=== PATIENT | male | born 1935 | race Caucasian/White ===

== ENCOUNTER 2017-12-17 15:19 | Emergency (ER) | payer MEDICARE ==
[~2017-12-17] VITALS: Ht 172.7 cm; Wt 85.0 kg
[~2017-12-17 15:19] MED LIST: ASPI-496 PO; ATOR10TA PO; ATOR10TA9 PO; CHOL200074 PO; GABA-826 PO; HYDR-3241 PO; LISI1TAB3 PO; LISI1TAB5 PO; METO25TA91 PO; MULT-224 PO; PREG75CA PO; TAMS0.4C2 PO
[2017-12-17 16:16] LABS: BASOPHILS # (AUTO) 0.02 x10^3/uL (0-0.1); BASOPHILS % (AUTO) 0 % (0-1); EOSINOPHILS # (AUTO) 0.04 x10^3/uL (0-0.4); EOSINOPHILS % (AUTO) 1 % (1-7); LYMPHOCYTES # (AUTO) 1.29 x10^3/uL (1-3.4); LYMPHOCYTES % (AUTO) 21 % (22-44); MD NO; MEAN CORPUSCULAR HEMOGLOBIN 34.5 pg (27.5-34.5); MEAN CORPUSCULAR HGB CONC 33.4 g/dL (33.2-36.2); MEAN CORPUSCULAR VOLUME 103.5 fL (81-97); MEAN PLATELET VOLUME 8.1 fL (7.4-10.4); MONOCYTES # (AUTO) 0.97 x10^3/uL (0.2-0.8); MONOCYTES % (AUTO) 16 % (2-9); NEUTROPHILS # (AUTO) 3.97 x10^3/uL (1.8-6.8); NEUTROPHILS % (AUTO) 63 % (42-75); PLATELET COUNT 152 x10^3/uL (130-400); RED BLOOD COUNT 3.38 x10^6/uL (4.38-5.82); RED CELL DISTRIBUTION WIDTH 17.1 % (9.4-14.8)
[2017-12-17 16:26] LABS: ALANINE AMINOTRANSFERASE 44 U/L (12-78); ALBUMIN 3.3 g/dL (3.4-5.0); ANION GAP 5 mmol/L (5-15); CHLORIDE 105 mmol/L (98-107); CREATININE 1.04 mg/dL (0.7-1.3)
[2017-12-17 16:28] LABS: ALKALINE PHOSPHATASE 85 U/L (45-117); BILIRUBIN,TOTAL 0.7 mg/dL (0.2-1.0); TOTAL PROTEIN 7.4 g/dL (6.4-8.2)
[2017-12-17] MEDS ORDERED: METHYLNALTREXONE 12 MG/0.6 ML SQ ONE ×2 (17:00→17:06)
[2017-12-17 18:05] LABS: MICROSCOPIC AUTO
[2017-12-17 18:08] LABS: CULTURE INDICATED? NO
[2017-12-17 19:32] VITALS: BP 142/62
== END 2017-12-17 19:34 | disposition home or self-care (01) ==
LOC: ED 18:22
DX: K59.00 Constipation, unspecified (principal); I11.0 Hypertensive heart disease with heart failure; I50.811 Acute right heart failure; F11.988 Opioid use, unspecified with other opioid-induced disorder; M19.90 Unspecified osteoarthritis, unspecified site; Z90.49 Acquired absence of other specified parts of digestive tract; Z95.0 Presence of cardiac pacemaker
CPT/HCPCS: 36415; 74021; 80053; 81001; 83690; 83880; 85025; 96372; 99285

== ENCOUNTER 2019-04-14 18:02 | Inpatient (IN) | payer MEDICARE ==
[~2019-04-14] VITALS: Ht 172.7 cm; Wt 88.7 kg
[~2019-04-14 18:02] MED LIST changes: +LISI1TAB19 PO; +LISI1TAB23 PO; -LISI1TAB3 PO; -LISI1TAB5 PO; -MULT-224 PO; +MULT-642 PO
[2019-04-14] MEDS: PLEASE ENTER HEIGHT AND WEIGHT MC SCH ×2 (18:50→19:19)
--- NOTE | 2019-04-14 18:53 | NUR ---
TASK RN: FLUIDS RUNNING, VSS AT THIS TIME. LAB AT BEDSIDE FOR COLLECTION. PRIMARY RN UPDATED
[2019-04-14] MEDS ORDERED: PIPERACILLIN/TAZO/PMX 3.375GM 50 ML IVPB ONE (19:00)
[2019-04-14] MEDS ORDERED: SODIUM CHLORIDE 0.9% 1,000ML IVBOLUS ONE (19:00)
--- NOTE | 2019-04-14 19:04 | NUR ---
THIS IS N 83 YO MALE PT ROMÁN WELDON FROM HOME AFTER PT HAD AN ACUTE CHANGE IN MENTAL STATUS TODAY. PT WAS RECENTLY ADMITTED AT [facility] FOR [place] LEVELS OF APPROX 56. PT AO X SELF AND SOMEWHAT THE SITUATION. PT GIVEN APPROX 400 CC PASTE THINNER. FS 146. PT IS WARM TO TOUCH, SKIN PINK AND DRY. PT HAS SLIGHTLY SHALLOW, RAPID RESP OF 24. PT COOPERATIVE AT THIS TIME. URINE SAMPLE OBTAINED AND SENT TO LAB. CAMILO PALACIOS WAS AT BEDSIDE FOR EVAL. PT ON HOME HEALTH CLINICIAN, PACED. WILL CONT TO MONITOR PT.
[2019-04-14 19:06] LABS: MICROSCOPIC NOT IND
[2019-04-14 19:08] LABS: CULTURE INDICATED? NO
[2019-04-14] MEDS ORDERED: PIPERACILLIN/TAZO/PMX 3.375GM 50 ML ONE (19:21)
[2019-04-14 19:22] LABS: MEAN CORPUSCULAR HEMOGLOBIN 37.4 pg (27.5-34.5); MEAN CORPUSCULAR HGB CONC 33.6 g/dL (33.2-36.2); MEAN CORPUSCULAR VOLUME 111.2 fL (81-97); PLATELET COUNT 243 x10^3/uL (130-400); RED BLOOD COUNT 2.67 x10^6/uL (4.38-5.82)
[2019-04-14 19:28] LABS: INTERNATIONAL NORMALIZED RATIO 0.94 (0.93-1.1)
[2019-04-14 19:32] LABS: ALANINE AMINOTRANSFERASE 10 U/L (12-78); ALBUMIN 3.2 g/dL (3.4-5.0); ANION GAP 6 mmol/L (5-15); CALCIUM 8.7 mg/dL (8.5-10.1); CHLORIDE 102 mmol/L (98-107); CREATININE 1.51 mg/dL (0.7-1.3)
[2019-04-14 19:37] LABS: ALKALINE PHOSPHATASE 63 U/L (45-117); BILIRUBIN,TOTAL 0.7 mg/dL (0.2-1.0); FREE T4 (FREE THYROXINE) 1.12 ng/dL (0.76-1.46); TOTAL PROTEIN 7.5 g/dL (6.4-8.2); TROPONIN I 0.037 ng/mL (0.000-0.045)
[2019-04-14 19:39] LABS: BASOPHILS # (AUTO) 0.01 x10^3/uL (0-0.1); BASOPHILS % (AUTO) 0 % (0-1); EOSINOPHILS # (AUTO) 0.16 x10^3/uL (0-0.4); EOSINOPHILS % (AUTO) 1 % (1-7); LYMPHOCYTES # (AUTO) 0.92 x10^3/uL (1-3.4); LYMPHOCYTES % (AUTO) 4 % (22-44); MD SCAN; MONOCYTES # (AUTO) 1.14 x10^3/uL (0.2-0.8); MONOCYTES % (AUTO) 5 % (2-9); NEUTROPHILS # (AUTO) 20.54 x10^3/uL (1.8-6.8); NEUTROPHILS % (AUTO) 90 % (42-75)
--- NOTE | 2019-04-14 19:43 | NUR ---
PT REPOSITIONED FOR COMFORT. PT'S AND SON ARE AT BEDSIDE. PT CONT TO BE AO X 2. PT FOLLOW'S COMMANDS APPROPRIATELY. PT WARM TO TOUCH, PINK AND DRY. RESP SLIGHTLY SHALLOW, SLOWER RESP AT RR 21 AND UNLABORED. PT ON CONT BP, CARDIAC AND O2 MONITORS. PT AND PT'S FAMILY AWARE WE ARE WAITING FOR LAB/IMAGING RESULTS. CALL LIGHT WITHIN REACH. WILL CONT TO MONITOR PT.
[2019-04-14] MEDS ORDERED: SPIR25TA5 PO (20:15)
[2019-04-14] MEDS ORDERED: FURO-92 PO (20:15)
[2019-04-14] MEDS ORDERED: CYAN100028 PO (20:15)
[2019-04-14] MEDS ORDERED: PREG75CA PO (20:15)
[2019-04-14] MEDS ORDERED: LACT20SO13 PO ×3 (20:15→20:17)
[2019-04-14] MEDS ORDERED: BENZ-17 PO (20:15)
[2019-04-14] MEDS ORDERED: ACET-1600 PO ×2 (20:15)
[2019-04-14] MEDS ORDERED: FURO-93 PO ×2 (20:15→21:25)
[2019-04-14] MEDS ORDERED: VANCOMYCIN 1,500 MG in SODIUM CHLORIDE 0.9% 250 ML IV ONE (20:30)
[2019-04-14] MEDS ORDERED: VANCOMYCIN PER PHARMACY MC PRN ×2 (20:30→22:30)
--- NOTE | 2019-04-14 20:33 | NUR ---
CAMIL[facility] PALACIOS AT BEDSIDE FOR RECHECK/EXPLANATION OF RESULTS TO PT AND PT'S WHO IS AT BEDSIDE. PT CONT TO BE AO X 2. PT WARM TO TOUCH, SKIN WARM AND DRY. RESP EVEN AND UNLABORED. PT ON CONT BP, CARDIAC AND O2 MONITORS. PER CAMILO PALACIOS PT IS NOT TO RECEIVE FLUIDS AT THIS TIME. CALL LIGHT WITHIN REACH. WILL CONT TO MONITOR PT.
--- NOTE | 2019-04-14 21:03 | NUR ---
ADMITTING [facility] AT BEDSIDE FOR EVAL. AT BEDSIDE. PT CONT TO BE AO X 2. SKIN PWD. RESP EVEN AND UNLABORED. PT ON CONT BP, CARDIAC AND O2 MONITORS. RESP EVEN AND UNLABORED. CALL LIGHT WITHIN REACH. WILL CONT TO MONITOR PT.
[2019-04-14] MEDS ORDERED: ASPI-515 PO (21:25)
[2019-04-14] MEDS ORDERED: GABAPENTIN PO (21:25)
--- NOTE | 2019-04-14 22:02 | NUR ---
PT RESTING ON GURNEY. NAD NOTED. SKIN PWD. RESP EVEN AND UNLABORED. OCCAISIONAL LOOSE COUGH NOTED BY RN. PT AO X 2. PT ON CONT METAL SPRAYER WITH PACED RHYTHM. CALL LIGHT WITHIN REACH.
--- NOTE | 2019-04-14 22:16 | NUR ---
REPORT TO CHARLOTTE ADAMS ON TELE.
--- NOTE | 2019-04-14 22:20 | NUR ---
DISCUSSED OBTAINING A TYLENOL ORDER FOR PT WITH [facility]. AWAITING ORDERS.
[2019-04-14] MEDS ORDERED: PHARMACY MAY ADJ FOR RENAL FX MC PRN (22:30)
[2019-04-14] MEDS ORDERED: BISACODYL 10 MG SUPP PR PRN (22:30)
[2019-04-14] MEDS ORDERED: hydrALAzine 20 MG/ML, 1ML IVPush PRN (22:30)
[2019-04-14] MEDS ORDERED: LACTATED RINGERS 1,000 ML IV SCH (22:30)
[2019-04-14 23:10] VITALS: BP 107/64
[2019-04-14] MEDS ORDERED: PHARMACOKINETIC MONITORING MC PRN (23:30)
[2019-04-15] MEDS: HEPARIN 5,000 UNITS/ML, 1ML SQ SCH ×3 (00:39→17:15)
[2019-04-15 01:37] VITALS: BP 104/61
[2019-04-15] MEDS: PIPERACILLIN/TAZO/PMX 3.375GM 50 ML IV SCH ×4 (05:03→23:59)
[2019-04-15 06:02] LABS: MEAN CORPUSCULAR HEMOGLOBIN 37.5 pg (27.5-34.5); MEAN CORPUSCULAR HGB CONC 33.6 g/dL (33.2-36.2); MEAN CORPUSCULAR VOLUME 111.7 fL (81-97); MEAN PLATELET VOLUME 7.1 fL (7.4-10.4); PLATELET COUNT 211 x10^3/uL (130-400); RED BLOOD COUNT 2.57 x10^6/uL (4.38-5.82); RED CELL DISTRIBUTION WIDTH 16.4 % (9.4-14.8)
[2019-04-15 06:12] LABS: ANION GAP 5 mmol/L (5-15); CALCIUM 8.6 mg/dL (8.5-10.1); CHLORIDE 105 mmol/L (98-107); CREATININE 1.33 mg/dL (0.7-1.3)
[2019-04-15 06:34] LABS: BASOPHILS # (AUTO) 0.01 x10^3/uL (0-0.1); BASOPHILS % (AUTO) 0 % (0-1); EOSINOPHILS # (AUTO) 0.08 x10^3/uL (0-0.4); EOSINOPHILS % (AUTO) 0 % (1-7); LYMPHOCYTES # (AUTO) 2.21 x10^3/uL (1-3.4); LYMPHOCYTES % (AUTO) 12 % (22-44); MD SCAN; MONOCYTES # (AUTO) 1.04 x10^3/uL (0.2-0.8); MONOCYTES % (AUTO) 6 % (2-9); NEUTROPHILS # (AUTO) 15.79 x10^3/uL (1.8-6.8); NEUTROPHILS % (AUTO) 83 % (42-75)
[2019-04-15 07:24] VITALS: BP 102/64
[2019-04-15] MEDS ORDERED: ERGO500017 PO (11:33)
[2019-04-15 12:55] VITALS: BP 120/74
[2019-04-15] MEDS: GUAIFENESIN ER 600 MG TABLET PO SCH ×2 (13:31→21:17)
[2019-04-15] MEDS ORDERED: VANCOMYCIN 1,700 MG in SODIUM CHLORIDE 0.9% 250 ML IV SCH (17:00)
[2019-04-15] MEDS: LACTULOSE 20 GM/30 ML UDC PO SCH ×2 (17:15→21:16)
[2019-04-15] MEDS: ONDANSETRON 2MG/ML, 2ML IVPush PRN (18:04)
[2019-04-15] MEDS: ALUMINUM/MAG/SIMETHICONE 30 ML UDC PO PRN (19:09)
[2019-04-15 20:01] VITALS: BP 115/72
[2019-04-15] MEDS ORDERED: ASPIRIN 81 MG TABLET EC PO SCH (21:00)
[2019-04-15] MEDS: ASPIRIN 81 MG TABLET CHEW PO SCH (21:16)
[2019-04-15] MEDS: PREGABALIN 75 MG CAPSULE PO SCH (21:16)
[2019-04-15] MEDS: ATORVASTATIN 10 MG TABLET PO SCH (21:16)
[2019-04-15] MEDS: LACTATED RINGERS 1,000 ML IV SCH (23:59)
[2019-04-16 00:59] VITALS: BP 128/80
[2019-04-16] MEDS: HEPARIN 5,000 UNITS/ML, 1ML SQ SCH ×4 (01:07→23:58)
[2019-04-16] MEDS: ALUMINUM/MAG/SIMETHICONE 30 ML UDC PO PRN ×4 (02:04→21:25)
[2019-04-16 04:17] VITALS: BP 118/78
[2019-04-16] MEDS: PIPERACILLIN/TAZO/PMX 3.375GM 50 ML IV SCH ×4 (05:32→23:48)
[2019-04-16 07:19] LABS: CALCIUM 8.6 mg/dL (8.5-10.1)
[2019-04-16 07:21] LABS: CREATININE 1.02 mg/dL (0.7-1.3); MEAN CORPUSCULAR HEMOGLOBIN 37.2 pg (27.5-34.5); MEAN CORPUSCULAR HGB CONC 32.7 g/dL (33.2-36.2); MEAN CORPUSCULAR VOLUME 113.9 fL (81-97); MEAN PLATELET VOLUME 7.3 fL (7.4-10.4); PLATELET COUNT 196 x10^3/uL (130-400); RED CELL DISTRIBUTION WIDTH 16.1 % (9.4-14.8)
[2019-04-16 07:50] LABS: BASOPHILS # (AUTO) 0.05 x10^3/uL (0-0.1); BASOPHILS % (AUTO) 1 % (0-1); EOSINOPHILS # (AUTO) 0.29 x10^3/uL (0-0.4); EOSINOPHILS % (AUTO) 4 % (1-7); LYMPHOCYTES # (AUTO) 1.36 x10^3/uL (1-3.4); LYMPHOCYTES % (AUTO) 18 % (22-44); MD SCAN; MONOCYTES # (AUTO) 0.79 x10^3/uL (0.2-0.8); MONOCYTES % (AUTO) 11 % (2-9); NEUTROPHILS # (AUTO) 4.92 x10^3/uL (1.8-6.8); NEUTROPHILS % (AUTO) 66 % (42-75)
[2019-04-16 07:54] LABS: ANION GAP 4 mmol/L (5-15); CHLORIDE 108 mmol/L (98-107)
[2019-04-16 08:05] VITALS: BP 112/65
[2019-04-16] MEDS: GUAIFENESIN 200 MG TABLET PO SCH ×4 (09:09→20:17)
[2019-04-16] MEDS: PREGABALIN 75 MG CAPSULE PO SCH ×3 (09:09→20:16)
[2019-04-16] MEDS: LACTULOSE 20 GM/30 ML UDC PO SCH ×3 (09:10→20:16)
[2019-04-16] MEDS: METOPROLOL SUCCINATE 25 MG TAB.ER.24H PO SCH (09:10)
[2019-04-16] MEDS: ONDANSETRON 2MG/ML, 2ML IVPush PRN ×3 (09:21→23:58)
[2019-04-16 12:29] VITALS: BP 112/73
[2019-04-16] MEDS: ATORVASTATIN 10 MG TABLET PO SCH (20:16)
[2019-04-16] MEDS: ASPIRIN 81 MG TABLET CHEW PO SCH (20:17)
[2019-04-16] MEDS: LIDODERM 5% PATCH TD PRN (20:27)
[2019-04-16 21:45] VITALS: BP 112/72
[2019-04-17] MEDS: ALUMINUM/MAG/SIMETHICONE 30 ML UDC PO PRN ×4 (01:42→21:00)
[2019-04-17 01:52] VITALS: BP 120/80
[2019-04-17 05:15] LABS: MEAN CORPUSCULAR HEMOGLOBIN 37.6 pg (27.5-34.5); MEAN CORPUSCULAR HGB CONC 33.3 g/dL (33.2-36.2); MEAN CORPUSCULAR VOLUME 112.8 fL (81-97); MEAN PLATELET VOLUME 7.6 fL (7.4-10.4); PLATELET COUNT 211 x10^3/uL (130-400); RED BLOOD COUNT 2.49 x10^6/uL (4.38-5.82); RED CELL DISTRIBUTION WIDTH 15.4 % (9.4-14.8)
[2019-04-17 05:19] LABS: ALBUMIN 2.6 g/dL (3.4-5.0); ANION GAP 2 mmol/L (5-15); CALCIUM 8.7 mg/dL (8.5-10.1); CHLORIDE 107 mmol/L (98-107)
[2019-04-17 05:22] LABS: ALANINE AMINOTRANSFERASE 14 U/L (12-78); ALKALINE PHOSPHATASE 45 U/L (45-117); BILIRUBIN,TOTAL 0.8 mg/dL (0.2-1.0); CREATININE 0.96 mg/dL (0.7-1.3); TOTAL PROTEIN 6.8 g/dL (6.4-8.2)
[2019-04-17 06:01] LABS: BASOPHILS # (AUTO) 0.07 x10^3/uL (0-0.1); BASOPHILS % (AUTO) 1 % (0-1); EOSINOPHILS # (AUTO) 0.34 x10^3/uL (0-0.4); EOSINOPHILS % (AUTO) 5 % (1-7); LYMPHOCYTES # (AUTO) 1.98 x10^3/uL (1-3.4); LYMPHOCYTES % (AUTO) 30 % (22-44); MD SCAN; MONOCYTES % (AUTO) 12 % (2-9); NEUTROPHILS # (AUTO) 3.41 x10^3/uL (1.8-6.8); NEUTROPHILS % (AUTO) 52 % (42-75)
[2019-04-17] MEDS: GUAIFENESIN 200 MG TABLET PO SCH ×4 (06:11→21:01)
[2019-04-17] MEDS: PIPERACILLIN/TAZO/PMX 3.375GM 50 ML IV SCH ×4 (06:11→23:20)
[2019-04-17] MEDS: ONDANSETRON 2MG/ML, 2ML IVPush PRN ×2 (06:12→11:30)
[2019-04-17 07:10] VITALS: BP 107/71
[2019-04-17] MEDS: HEPARIN 5,000 UNITS/ML, 1ML SQ SCH ×2 (08:32→17:06)
[2019-04-17] MEDS: LACTULOSE 20 GM/30 ML UDC PO SCH ×3 (08:32→21:00)
[2019-04-17] MEDS: PREGABALIN 75 MG CAPSULE PO SCH ×3 (08:32→21:00)
[2019-04-17] MEDS: LACTATED RINGERS 1,000 ML IV SCH (08:32)
[2019-04-17] MEDS: METOPROLOL SUCCINATE 25 MG TAB.ER.24H PO SCH (08:34)
[2019-04-17] MEDS: MEXILETINE 150 MG CAPSULE PO SCH ×2 (13:21→20:59)
[2019-04-17 13:37] VITALS: BP 106/68
[2019-04-17 18:03] VITALS: BP 105/60
[2019-04-17 19:33] VITALS: BP 125/73
[2019-04-17] MEDS: ASPIRIN 81 MG TABLET CHEW PO SCH (21:00)
[2019-04-17] MEDS: ATORVASTATIN 10 MG TABLET PO SCH (21:01)
[2019-04-18] MEDS: HEPARIN 5,000 UNITS/ML, 1ML SQ SCH ×3 (00:30→17:06)
[2019-04-18 03:20] VITALS: BP 112/68
[2019-04-18 04:54] LABS: MEAN CORPUSCULAR HEMOGLOBIN 37.2 pg (27.5-34.5); MEAN CORPUSCULAR HGB CONC 33.2 g/dL (33.2-36.2); MEAN CORPUSCULAR VOLUME 112.2 fL (81-97); MEAN PLATELET VOLUME 7.3 fL (7.4-10.4); PLATELET COUNT 201 x10^3/uL (130-400); RED BLOOD COUNT 2.46 x10^6/uL (4.38-5.82); RED CELL DISTRIBUTION WIDTH 15.8 % (9.4-14.8)
[2019-04-18 05:02] LABS: ALBUMIN 2.5 g/dL (3.4-5.0); ANION GAP 5 mmol/L (5-15); CALCIUM 8.6 mg/dL (8.5-10.1); CHLORIDE 108 mmol/L (98-107); CREATININE 1.01 mg/dL (0.7-1.3)
[2019-04-18 05:04] LABS: ALKALINE PHOSPHATASE 45 U/L (45-117); BILIRUBIN,TOTAL 0.5 mg/dL (0.2-1.0); TOTAL PROTEIN 6.4 g/dL (6.4-8.2)
[2019-04-18 05:05] LABS: ALANINE AMINOTRANSFERASE < 6 U/L (12-78)
[2019-04-18 05:51] LABS: BASOPHILS # (AUTO) 0.06 x10^3/uL (0-0.1); BASOPHILS % (AUTO) 1 % (0-1); EOSINOPHILS % (AUTO) 4 % (1-7); LYMPHOCYTES # (AUTO) 1.58 x10^3/uL (1-3.4); LYMPHOCYTES % (AUTO) 34 % (22-44); MD SCAN; MONOCYTES # (AUTO) 0.68 x10^3/uL (0.2-0.8); MONOCYTES % (AUTO) 15 % (2-9); NEUTROPHILS # (AUTO) 2.15 x10^3/uL (1.8-6.8); NEUTROPHILS % (AUTO) 46 % (42-75)
[2019-04-18] MEDS: PIPERACILLIN/TAZO/PMX 3.375GM 50 ML IV SCH ×2 (05:52→12:49)
[2019-04-18] MEDS: GUAIFENESIN 200 MG TABLET PO SCH ×4 (05:52→21:05)
[2019-04-18] MEDS: MEXILETINE 150 MG CAPSULE PO SCH ×2 (05:52→14:20)
[2019-04-18 06:43] VITALS: BP 101/63
[2019-04-18 09:15] VITALS: BP 106/68
[2019-04-18] MEDS: METOPROLOL SUCCINATE 25 MG TAB.ER.24H PO SCH (09:19)
[2019-04-18] MEDS: LACTULOSE 20 GM/30 ML UDC PO SCH ×2 (09:19→21:05)
[2019-04-18] MEDS: PREGABALIN 75 MG CAPSULE PO SCH ×3 (09:19→21:05)
[2019-04-18 12:20] VITALS: BP 101/66
[2019-04-18] MEDS ORDERED: MAG-124 PO (13:19)
[2019-04-18] MEDS ORDERED: ONDA4TAB7 PO (13:19)
[2019-04-18] MEDS: ONDANSETRON 2MG/ML, 2ML IVPush PRN (17:16)
[2019-04-18] MEDS: CEFTRIAXONE PMX 1GM/50ML 50 ML IV SCH ×2 (17:16→17:33)
[2019-04-18] MEDS: AMPICILLIN/SULBACTAM 3 GM in SODIUM CHLORIDE 0.9% 100 ML IV SCH (18:26)
[2019-04-18 18:52] VITALS: BP 106/71
[2019-04-18] MEDS: ATORVASTATIN 10 MG TABLET PO SCH (21:05)
[2019-04-18] MEDS: ASPIRIN 81 MG TABLET CHEW PO SCH (21:05)
[2019-04-18] MEDS: LIDODERM 5% PATCH TD PRN (21:07)
[2019-04-19] MEDS: AMPICILLIN/SULBACTAM 3 GM in SODIUM CHLORIDE 0.9% 100 ML IV SCH ×4 (00:14→18:34)
[2019-04-19] MEDS: MEXILETINE 150 MG CAPSULE PO SCH ×3 (00:15→17:45)
[2019-04-19 00:30] VITALS: BP 105/72
[2019-04-19] MEDS: HEPARIN 5,000 UNITS/ML, 1ML SQ SCH ×3 (00:30→17:03)
[2019-04-19] MEDS: GUAIFENESIN 200 MG TABLET PO SCH ×4 (06:08→22:17)
[2019-04-19 06:50] VITALS: BP 101/63
[2019-04-19] MEDS: PREGABALIN 75 MG CAPSULE PO SCH ×3 (09:19→22:17)
[2019-04-19] MEDS: LACTULOSE 20 GM/30 ML UDC PO SCH ×2 (09:20→22:16)
[2019-04-19] MEDS: ACETAMINOPHEN 500 MG TABLET PO SCH ×3 (09:20→22:16)
[2019-04-19 09:25] VITALS: BP 97/60
[2019-04-19] MEDS: METOPROLOL SUCCINATE 25 MG TAB.ER.24H PO SCH (09:51)
[2019-04-19] MEDS: ALUMINUM/MAG/SIMETHICONE 30 ML UDC PO PRN ×3 (09:52→22:17)
[2019-04-19] MEDS ORDERED: ATOR10TA9 PO (10:41)
[2019-04-19] MEDS ORDERED: GUAI200T37 PO (10:41)
[2019-04-19] MEDS ORDERED: METO25TA91 PO (10:41)
[2019-04-19] MEDS ORDERED: MEXI150C PO (10:41)
[2019-04-19] MEDS ORDERED: AMOX1TAB64 PO (10:42)
[2019-04-19] MEDS ORDERED: DOXY100C2 PO (10:43)
[2019-04-19] MEDS ORDERED: FURO-92 PO (10:43)
[2019-04-19 12:35] VITALS: BP 93/59
[2019-04-19] MEDS: ONDANSETRON 2MG/ML, 2ML IVPush PRN ×2 (17:04→23:29)
[2019-04-19] MEDS: CEFTRIAXONE PMX 1GM/50ML 50 ML IV SCH (17:45)
[2019-04-19 21:38] VITALS: BP 121/78
[2019-04-19] MEDS: ATORVASTATIN 10 MG TABLET PO SCH (22:16)
[2019-04-19] MEDS: ASPIRIN 81 MG TABLET CHEW PO SCH (22:16)
[2019-04-20] MEDS: AMPICILLIN/SULBACTAM 3 GM in SODIUM CHLORIDE 0.9% 100 ML IV SCH ×3 (00:43→12:30)
[2019-04-20 00:52] VITALS: BP 107/72
[2019-04-20] MEDS: HEPARIN 5,000 UNITS/ML, 1ML SQ SCH ×2 (02:31→09:42)
[2019-04-20] MEDS: MEXILETINE 150 MG CAPSULE PO SCH ×2 (02:31→09:42)
[2019-04-20] MEDS: ALUMINUM/MAG/SIMETHICONE 30 ML UDC PO PRN (02:31)
[2019-04-20] MEDS: GUAIFENESIN 200 MG TABLET PO SCH ×2 (06:34→11:48)
[2019-04-20 06:52] VITALS: BP 108/67
[2019-04-20] MEDS ORDERED: METOPROLOL SUCCINATE 25 MG TAB.ER.24H PO SCH (09:00)
[2019-04-20] MEDS: LACTULOSE 20 GM/30 ML UDC PO SCH (09:41)
[2019-04-20] MEDS: ACETAMINOPHEN 500 MG TABLET PO SCH (09:41)
[2019-04-20] MEDS: PREGABALIN 75 MG CAPSULE PO SCH (09:42)
[2019-04-20 12:30] VITALS: BP 97/62
== END 2019-04-20 14:11 | DRG 871 ==
LOC: ED 20:13 → EDIP 20:39 → 4WST 22:37 → 5SO 04-17 18:02
PROVIDERS: ADMIT Internal Medicine; ATTEND Hospitalist
PROC: 0T9B70Z Drainage of Bladder with Drainage Device, Via Natural or Artificial Opening (ICD-10-PCS; 2019-04-14)
PROC: 4B02XTZ Measurement of Cardiac Defibrillator, External Approach (ICD-10-PCS; principal; 2019-04-17)
DX: A41.9 Sepsis, unspecified organism (principal); G93.41 Metabolic encephalopathy; J96.01 Acute respiratory failure with hypoxia; N17.0 Acute kidney failure with tubular necrosis; J15.5 Pneumonia due to Escherichia coli; I47.2 Ventricular tachycardia; F03.90 Unspecified dementia, unspecified severity, without behavioral disturbance, psychotic disturbance, mood disturbance, and anxiety; I11.0 Hypertensive heart disease with heart failure; D64.9 Anemia, unspecified; E78.5 Hyperlipidemia, unspecified; H90.5 Unspecified sensorineural hearing loss; I50.9 Heart failure, unspecified; N40.0 Benign prostatic hyperplasia without lower urinary tract symptoms; I35.0 Nonrheumatic aortic (valve) stenosis; Z80.3 Family history of malignant neoplasm of breast; Z85.038 Personal history of other malignant neoplasm of large intestine; Z95.0 Presence of cardiac pacemaker; Z87.891 Personal history of nicotine dependence; Z79.899 Other long term (current) drug therapy; K72.90 Hepatic failure, unspecified without coma; K74.60 Unspecified cirrhosis of liver
CPT/HCPCS: 36415; 36600; 71045; 74230; 80048; 80053; 81003; 82140; 82803; 83605; 83735; 84100; 84145; 84439; 84443; 84484; 85025; 85610; 87040; 87070; 87077; 87081; 87186; 87205; 93005; 93306; 94640; 96361; 96365; 96375; 99285; G0378; J0295; J0696; J1644; J2405; J2543; J3370; J7030; J7050; J7120

== ENCOUNTER → 2019-10-29 | Outpatient (CLI) | payer MEDICARE ==
[~2019-10-29] MED LIST changes: +ACET-1600 PO; +AMOX1TAB64 PO; +ASPI-515 PO; +BENZ-17 PO; +CYAN100028 PO; +DOXY100C2 PO; +ERGO500017 PO; +FURO-92 PO; +FURO-93 PO; +GABAPENTIN PO; +GUAI200T37 PO; +LACT20SO13 PO; +MAG-124 PO; +MEXI150C PO; +OMNIPAQUE 350 MG/ML, 100ML BOTTLE ONE; +ONDA4TAB7 PO; +SPIR25TA5 PO
== END | disposition home or self-care (01) ==
LOC: CFH 12:42
PROVIDERS: ATTEND Surgery
DX: K76.0 Fatty (change of) liver, not elsewhere classified (principal); I51.7 Cardiomegaly; K42.9 Umbilical hernia without obstruction or gangrene; I25.10 Atherosclerotic heart disease of native coronary artery without angina pectoris; J98.11 Atelectasis
CPT/HCPCS: 74177; Q9967